=== PATIENT | female | born 1980 | race American Indian/Alaskan Native ===

== ENCOUNTER 2017-12-28 08:49 | Emergency (ER) | payer SELFPAY ==
[2017-12-28 09:25] VITALS: BP 107/74
[2017-12-28 10:17] LABS: Hematocrit 32.5 % (30.3-42.9); Hemoglobin 10.8 gm/dl (10.1-14.3); Mean Corpuscular HGB Conc 33 % (30-34); Mean Corpuscular Hemoglobin 28 pg (28-32); Mean Corpuscular Volume 84 fl (79-97); Platelet Count 318 K/mm3 (140-440); Red Blood Count 3.87 M/mm3 (3.65-5.03); Red Cell Distribution Width 14.9 % (13.2-15.2)
--- NOTE | 2017-12-28 10:25 | Emergency Department Report ---
HPI - General Chief Complaint: Seizure Time Seen by Provider: 12/28/17 10:14 - [facility] HPI: Guajardo [id number] The patient is a 37-year-old female presenting with a chief complaint of seizure. The patient has a history of seizures and states she has not had seizure medication in "a minute." Coworkers reported the patient had a seizure. There is some question whether the patient struck her head during the event. The patient is currently postictal/drowsy and states that she has a headache and states that it does not feel different from her previous headaches after seizures. The patient does not recall the last time she had a seizure. Location: Head Duration: Occurred at approximately 08:00 Quality: Headache Severity: Moderate Modifying factors: [see above] Context: [see above] Mode of transportation: [not driving] ED Past Medical Hx - Past Medical History Previous Medical History?: Yes Hx Seizures: Yes - Surgical History Past Surgical History?: No - Family History Family history: no significant - Social History Smoking Status: Never Smoker ED Review of Systems ROS: Stated complaint: SEIZURES Other details as noted in HPI Constitutional: no symptoms reported Neurological: headache Physical Exam - Physical Exam Vital Signs: Vital Signs 12/28/17 09:22 Temperature 98.1 F Pulse Rate 62 Respiratory 16 Rate Blood Pressure 107/74 O2 Sat by Pulse 98 Oximetry Physical Exam: GENERAL: The patient is well-developed well-nourished female sleeping on stretcher postictal requiring verbal and tactile stimuli to awaken. [] HEENT: Normocephalic. Patient has moist mucous membranes. NECK: Trachea midline CHEST/LUNGS: Clear to auscultation. There is no respiratory distress noted. HEART/CARDIOVASCULAR: Regular. There is no tachycardia. There is no gallop rub or murmur. ABDOMEN: Abdomen is soft, nontender. Patient has normal bowel sounds. There is no abdominal distention. SKIN: There is no rash. There is no edema. There is no diaphoresis. NEURO: The patient is postictal but able to be awakened to verbal and tactile stimuli. The patient is oriented. The patient is postictal and will not fully cooperate with neurological exam at this time. The patient has normal speech MUSCULOSKELETAL: There is no evidence of acute injury. ED Course Vital Signs 12/28/17 09:22 Temperature 98.1 F Pulse Rate 62 Respiratory 16 Rate Blood Pressure 107/74 O2 Sat by Pulse 98 Oximetry - Reevaluation(s) Reevaluation #1: 12/28/17 11:13 Informed by charge nurse Eduardo the patient has pulled out her IV and eloped ED Medical Decision Making - Lab Data Result diagrams: 12/28/17 09:37 12/28/17 09:37 Laboratory Tests 12/28/17 12/28/17 12/28/17 09:37 09:37 10:00 WBC 5.7 RBC 3.87 Hgb 10.8 Hct 32.5 MCV 84 MCH 28 MCHC 33 RDW 14.9 Plt Count 318 Sodium 140 Potassium 3.6 Chloride 101.3 Carbon Dioxide 28 Anion Gap 14 BUN 11 Creatinine 0.9 Estimated GFR > 60 BUN/Creatinine Ratio 12 Glucose 85 Calcium 8.9 HCG, Qual Carbamazepine 2.0 L 12/28/17 10:00 WBC RBC Hgb Hct MCV MCH MCHC RDW Plt Count Sodium Potassium Chloride Carbon Dioxide Anion Gap BUN Creatinine Estimated GFR BUN/Creatinine Ratio Glucose Calcium HCG, Qual Negative Carbamazepine - Differential Diagnosis seizure, closed head injury, ICH Critical care attestation.: If time is entered above; I have spent that time in minutes in the direct care of this critically ill patient, excluding procedure time. ED Disposition Clinical Impression: Seizure, Noncompliance with medications Disposition: Z07 ELOPED Is pt being admited?: No Does the pt Need Aspirin: No Condition: Undetermined Referrals: PRIMARY CARE, [Primary Care Provider] - 3-5 Days
[2017-12-28 10:46] LABS: BUN/Creatinine Ratio 12; Blood Urea Nitrogen 11 mg/dL (7-17); Calcium 8.9 mg/dL (8.4-10.2); Hemolysis Index 3
== END 2017-12-28 11:12 | disposition left against medical advice (07) ==
LOC: ED 08:49
DX: R56.9 Unspecified convulsions (principal); Z91.14 Patient's other noncompliance with medication regimen
CPT/HCPCS: 36415; 80048; 80156; 84703; 85027; 99284